=== PATIENT | female | born 1955 | race Caucasian/White ===

== ENCOUNTER 2023-10-13 13:14 | Emergency (ER) | payer MEDICARE, OTHER ==
[~2023-10-13] VITALS: Ht 172.7 cm; Wt 92.4 kg
[~2023-10-13 13:14] MED LIST: CITALOPRAM HBR10 MG; GABAPENTIN300 MG PO; LISINOPRIL10 MG PO; MACROBID 100 M100 MG PO; METOPROLOL SUCC25 MG; TYLENOL EXTRA500 MG PO
--- OUTSIDE RECORDS SUMMARY | 2023-10-13 13:23 | XMS ---
PreManage Notification: CELESTINA HENNING [employer] Events No recent Security Events currently on file CRITERIA MET - [facility] - 2 Visits in 30 Days [facility]: Unknown MERVAT BECKFORD Counselor: Mental Health Current PHONE: [phone] Krystyna has no Care Guidelines for this patient. Rosenda VISIT COUNT (12 MO.) 2 [facility] TOTAL 2 NOTE: Visits indicate total known visits. ED/UCC VISIT TRACKING (12 MO.) 10/13/2023 13:14 [facility] TYPE: Emergency COMPLAINT: - BLOODY URINE 09/22/2023 23:48 [facility] TYPE: Emergency COMPLAINT: - URINE PROBLEM DIAGNOSES: - Essential (primary) hypertension - Hematuria, unspecified - Other chcf (current) drug therapy - Urinary tract infection, site not specified INPATIENT VISIT TRACKING (12 MO.) No inpatient visits to display in this time frame [email or web address]
[2023-10-13 13:37] LABS: BILIRUBIN, URINE NEGATIVE (negative); BLOOD/HGB, URINE LARGE (Negative); KETONE, URINE NEGATIVE (Negative); LEUK ESTERASE, URINE SMALL (negative); NITRITE, URINE NEGATIVE (negative); PH, URINE 5.5 (5-7)
[2023-10-13 13:45] LABS: BACTERIA, URINE 1+ /hpf (negative); CASTS, URINE NONE SEEN \\lpf; COLLECTION TYPE, URINE CLEAN CATCH; CRYSTALS, URINE NONE SEEN (0-1+); EPITHELIAL CELLS, URINE 0 /lpf (0-1+); RED BLOOD CELLS, URINE 41-50 /hpf (0-5); REFLEX CULTURE, URINE Yes (No); WHITE BLOOD CELLS, URINE 21-40 /HPF (0-5)
[2023-10-13] MEDS ORDERED: AMOX TR-K CLV1 EAC1 PO (13:53)
[2023-10-13 14:19] VITALS: BP 132/88
== END 2023-10-13 14:20 | disposition home or self-care (01) ==
LOC: ED 13:14
PROVIDERS: Emergency Medicine
DX: N39.0 Urinary tract infection, site not specified (principal); I10 Essential (primary) hypertension; Z79.899 Other long term (current) drug therapy
CPT/HCPCS: 81001; 87088; 99283

== ENCOUNTER 2024-08-05 12:58 | Emergency (ER) | payer MEDICARE, OTHER ==
[~2024-08-05] VITALS: Ht 172.7 cm; Wt 82.4 kg
[~2024-08-05 12:58] MED LIST changes: +AMOX TR-K CLV1 EAC1 PO
[2024-08-05] MEDS ORDERED: CLONAZEPAM0.25 MG PO (13:42)
[2024-08-05] MEDS ORDERED: SUMATRIPTAN SUC50 MG PO (13:42)
[2024-08-05] MEDS ORDERED: SERTRALINE HCL100 MG PO (13:42)
[2024-08-05] MEDS ORDERED: HYDROXYZINE HCL50 MG PO (13:42)
[2024-08-05] MEDS ORDERED: ondansetron HCL 4 MG/2 ML VIAL IV PRN (13:45)
[2024-08-05] MEDS ORDERED: KETOROLAC TROMETHAMINE 15 MG/ML VIAL IV ONE (13:45)
[2024-08-05 14:00] LABS: BASOPHILS 0.2 % (0-2); EOSINOPHILS 0.7 % (0-6); HEMATOCRIT 42.5 % (35.0-50.0); HEMOGLOBIN 14.4 g/dL (12.0-18.0); MCH 31.2 (27-36); MCHC 33.9 g/dl (30-36); MCV 91.8 fl (81-99); MONOCYTES 7.6 % (0-12); NEUTROPHILS 82.5 % (39-80); PLATELET COUNT 281 K/uL (140-440); RBC 4.62 M/ul (4.3-5.7); RDW 12.9 (10.5-15.0)
[2024-08-05] MEDS ORDERED: SODIUM CHLORIDE 0.9% 1,000 ML IV PRN (14:15)
[2024-08-05 14:19] LABS: ALBUMIN 3.4 g/dL (3.4-5.0); ANION GAP 13.8 (7-21); BILIRUBIN, TOTAL 0.6 ng/dL (0.2-1.0); BUN/CREATININE RATIO 13.07 (6.0-28.6); CALCIUM 10.6 mg/dL (8.5-10.1); CREATININE, SERUM 1.3 mg/dL (0.55-1.02); POTASSIUM 3.8 mmol/L (3.5-5.1); PROTEIN, TOTAL 6.8 g/dL (6.4-8.2)
[2024-08-05 14:22] LABS: BILIRUBIN, URINE POSITIVE (negative); BLOOD/HGB, URINE TRACE-I (Negative); KETONE, URINE SMALL (Negative); LEUK ESTERASE, URINE TRACE (negative); NITRITE, URINE POSITIVE (negative)
[2024-08-05 14:30] LABS: RED BLOOD CELLS, URINE 0-1 /hpf (0-5)
[2024-08-05 14:31] LABS: CRYSTALS, URINE CALCIUM OXALATE 4+ (0-1+)
[2024-08-05 14:34] LABS: COLLECTION TYPE, URINE CLEAN CATCH; REFLEX CULTURE, URINE Yes (No)
[2024-08-05 14:36] LABS: BACTERIA, URINE 1+ /hpf (negative); EPITHELIAL CELLS, URINE SQUAMOUS 1+ /lpf (0-1+)
[2024-08-05] MEDS ORDERED: CEFTRIAXONE/SODIUM CHLORIDE 1 GM/100 ML PIGGYBACK IV ONE (16:00)
[2024-08-05 17:20] LABS: LACTIC ACID, BLOOD 0.8 mmol/L (0.4-2.0)
[2024-08-05] MEDS ORDERED: HYDROmorphone HCL 1 MG/ML SYR IV ONE (19:30)
[2024-08-05] MEDS ORDERED: SODIUM CHLORIDE 0.9% 1,000 ML IV SCH (19:30)
[2024-08-06 01:11] VITALS: BP 145/95
== END 2024-08-06 01:24 | disposition short-term general hospital (02) ==
LOC: ED 12:58
PROVIDERS: Emergency Medicine
DX: N13.6 Pyonephrosis (principal); R94.4 Abnormal results of kidney function studies; G43.909 Migraine, unspecified, not intractable, without status migrainosus; I10 Essential (primary) hypertension; Z87.442 Personal history of urinary calculi; Z88.8 Allergy status to other drugs, medicaments and biological substances; Z79.899 Other long term (current) drug therapy
CPT/HCPCS: 36415; 74176; 80053; 81001; 83605; 85025; 87077; 87088; 87186; 96361; 96365; 96375; 99285-25; J0696; J1171; J1885; J2405; J7030

== ENCOUNTER 2024-09-09 12:40 | Emergency (ER) | payer MEDICARE, OTHER ==
[~2024-09-09] VITALS: Ht 172.7 cm; Wt 81.4 kg
[~2024-09-09 12:40] MED LIST changes: +CLONAZEPAM0.25 MG PO; +HYDROXYZINE HCL50 MG PO; -METOPROLOL SUCC25 MG; +METOPROLOL SUCC25 MG PO; +SERTRALINE HCL100 MG PO; +SUMATRIPTAN SUC50 MG PO
[2024-09-09] MEDS ORDERED: ondansetron HCL 4 MG/2 ML VIAL IV ONE (13:00)
[2024-09-09 13:01] LABS: HEMATOCRIT 42.2 % (35.0-50.0); HEMOGLOBIN 14.2 g/dL (12.0-18.0); MCH 30.4 (27-36); MCHC 33.6 g/dl (30-36); MCV 90.3 fl (81-99); PLATELET COUNT 291 K/uL (140-440); RBC 4.67 M/ul (4.3-5.7); RDW 13.1 (10.5-15.0)
[2024-09-09 13:16] LABS: ALBUMIN 3.5 g/dL (3.4-5.0); ALBUMIN/GLOBULIN RATIO 0.8 (1.1-2.4); ANION GAP 15.4 (7-21); BUN/CREATININE RATIO 9.7 (6.0-28.6); CALCIUM 10.7 mg/dL (8.5-10.1); CREATININE, SERUM 1.34 mg/dL (0.55-1.02); MAGNESIUM 1.4 mg/dL (1.8-2.4); POTASSIUM 3.4 mmol/L (3.5-5.1); PROTEIN, TOTAL 7.9 g/dL (6.4-8.2)
[2024-09-09 13:17] LABS: BANDS, MANUAL DIFF 9; BASOPHILS, MANUAL DIFF 0; EOSINOPHILS, MANUAL DIFF 0; LYMPHOCYTES, MANUAL DIFF 6; MONOCYTES, MANUAL DIFF 12; NEUTROPHILS, MANUAL DIFF 73
[2024-09-09 13:59] LABS: BILIRUBIN, URINE NEGATIVE (negative); BLOOD/HGB, URINE LARGE (Negative); KETONE, URINE TRACE (Negative); LEUK ESTERASE, URINE MODERATE (negative); NITRITE, URINE POSITIVE (negative); PH, URINE 5.5 (5-7)
[2024-09-09 14:01] LABS: RED BLOOD CELLS, URINE 0-1 /hpf (0-5); WHITE BLOOD CELLS, URINE >50 /HPF (0-5)
[2024-09-09 14:02] LABS: BACTERIA, URINE 2+ /hpf (negative); CASTS, URINE NONE SEEN \\lpf; COLLECTION TYPE, URINE CLEAN CATCH; CRYSTALS, URINE NONE SEEN (0-1+); EPITHELIAL CELLS, URINE 0 /lpf (0-1+)
[2024-09-09 14:03] LABS: REFLEX CULTURE, URINE Yes (No)
[2024-09-09] MEDS ORDERED: CEFTRIAXONE/SODIUM CHLORIDE 1 GM/100 ML PIGGYBACK IV ONE (14:45)
[2024-09-09] MEDS ORDERED: ACETAMINOPHEN 500 MG TAB PO ONE (15:45)
[2024-09-09 16:35] VITALS: BP 176/96
[2024-09-13] MEDS ORDERED: BACTRIM DS TAB1 EACH PO (12:37)
== END 2024-09-09 16:35 | disposition home or self-care (01) ==
LOC: ED 12:40
PROVIDERS: Emergency Medicine
DX: N39.0 Urinary tract infection, site not specified (principal); I10 Essential (primary) hypertension; G43.909 Migraine, unspecified, not intractable, without status migrainosus; Z96.0 Presence of urogenital implants; Z88.8 Allergy status to other drugs, medicaments and biological substances; Z79.899 Other long term (current) drug therapy
CPT/HCPCS: 36415; 80053; 81001; 83735; 85025; 87088; 96374; 99284-25; A9270; J0696

== ENCOUNTER 2024-11-25 10:30 | Emergency (ER) | payer MEDICARE, OTHER ==
[~2024-11-25] VITALS: Ht 172.7 cm; Wt 84.4 kg
[~2024-11-25 10:30] MED LIST changes: +BACTRIM DS TAB1 EACH PO
[2024-11-25] MEDS ORDERED: diphenhydrAMINE HCL 50 MG/ML VIAL IV ONE (11:30)
[2024-11-25] MEDS ORDERED: METOCLOPRAMIDE HCL 10 MG/2 ML SDV IV ONE (11:30)
[2024-11-25] MEDS ORDERED: DEXAMETHASONE SOD PHOS 10 MG/ML VIAL IV ONE (11:30)
[2024-11-25] MEDS ORDERED: KETOROLAC TROMETHAMINE 15 MG/ML VIAL IV ONE (11:30)
[2024-11-25] MEDS ORDERED: SODIUM CHLORIDE 0.9% 1,000 ML IV ONE (11:30)
[2024-11-25] MEDS ORDERED: REGLAN10 MG PO (12:49)
[2024-11-25 13:03] VITALS: BP 188/84
== END 2024-11-25 13:07 | disposition home or self-care (01) ==
LOC: ED 10:30
DX: G43.909 Migraine, unspecified, not intractable, without status migrainosus (principal); I10 Essential (primary) hypertension; Z88.8 Allergy status to other drugs, medicaments and biological substances; Z79.899 Other long term (current) drug therapy
CPT/HCPCS: 96374; 96375; 99283-25; J1100; J1200; J1885; J2765; J7030

== ENCOUNTER 2025-02-28 18:57 | Emergency (ER) | payer MEDICARE, OTHER ==
[~2025-02-28] VITALS: Ht 172.7 cm; Wt 86.1 kg
[~2025-02-28 18:57] MED LIST changes: +REGLAN10 MG PO
[2025-02-28] MEDS ORDERED: METOPROLOL SUCC50 MG PO (20:35)
[2025-02-28] MEDS ORDERED: METOPROLOL SUCCINATE 50 MG TABCR PO ONE (20:45)
[2025-02-28 20:47] VITALS: BP 158/117
[2025-02-28] MEDS ORDERED: LISINOPRIL40 MG PO (21:02)
== END 2025-02-28 20:47 | disposition home or self-care (01) ==
LOC: ED 18:57
DX: Z76.0 Encounter for issue of repeat prescription (principal); G43.909 Migraine, unspecified, not intractable, without status migrainosus; I10 Essential (primary) hypertension; Z79.899 Other long term (current) drug therapy; Z88.8 Allergy status to other drugs, medicaments and biological substances
CPT/HCPCS: 99281

== ENCOUNTER 2025-05-09 16:42 | Emergency (ER) | payer MEDICARE, OTHER ==
[~2025-05-09] VITALS: Ht 172.7 cm; Wt 88.7 kg
[~2025-05-09 16:42] MED LIST changes: +LISINOPRIL40 MG PO; +METOPROLOL SUCC50 MG PO
[2025-05-09] MEDS ORDERED: SODIUM CHLORIDE 0.9% 1,000 ML IV ONE (17:30)
[2025-05-09 17:39] LABS: BASOPHILS 0.3 % (0.1-1.2); EOSINOPHILS 0.9 % (0.7-5.8); LYMPHOCYTES 24.1 % (19.3-51.7); MCH 30.5 PG (25.6-32.2); MCHC 33.7 g/dL (32.2-35.5); MCV 90.5 fL (79.4-94.8); MONOCYTES 8.1 % (4.7-12.5); NEUTROPHILS 66.4 % (34.0-71.1); RBC 4.40 M/uL (3.93-5.22)
[2025-05-09 17:54] LABS: ALT (SGPT) 24.0 U/L (14-59); AST (SGOT) 15.0 U/L (15-37); GLOMERULAR FILTRATION RATE,EST 67.0 mL/min (>60); PROTEIN, TOTAL 6.9 g/dL (6.4-8.2); UREA NITROGEN 14.0 mg/dL (7-18)
[2025-05-09 18:27] LABS: BLOOD/HGB, URINE SMALL (Negative); KETONE, URINE NEGATIVE (Negative); LEUK ESTERASE, URINE NEGATIVE (negative); NITRITE, URINE NEGATIVE (negative)
[2025-05-09] MEDS ORDERED: TAMSULOSIN HCL 0.4 MG CAP PO ONE (18:30)
[2025-05-09] MEDS ORDERED: HYDROCODONE BIT/ACETAMINOPHEN 5/325 MG 1 TAB HOME.PACK PO ONE (18:30)
[2025-05-09] MEDS ORDERED: ONDANSETRON ODT8 MG PO (18:31)
[2025-05-09] MEDS ORDERED: FLOMAX0.4 MG PO (18:31)
[2025-05-09] MEDS ORDERED: HYDROCODON-ACE1 EA10 PO (18:31)
[2025-05-09 18:33] LABS: BACTERIA, URINE NONE SEEN /hpf (negative); CASTS, URINE NONE SEEN \\lpf; CRYSTALS, URINE NONE SEEN (0-1+); EPITHELIAL CELLS, URINE SQUAMOUS 1+ /lpf (0-1+); REFLEX CULTURE, URINE No (No)
[2025-05-09 18:46] VITALS: BP 169/79
== END 2025-05-09 18:42 | disposition home or self-care (01) ==
LOC: ED 16:42
PROVIDERS: Emergency Medicine
DX: N13.2 Hydronephrosis with renal and ureteral calculous obstruction (principal); I10 Essential (primary) hypertension; Z87.442 Personal history of urinary calculi; Z88.8 Allergy status to other drugs, medicaments and biological substances; Z79.899 Other long term (current) drug therapy
CPT/HCPCS: 36415; 74176; 80053; 81001; 83690; 85025; 99284-25; A9270; J7030

== ENCOUNTER 2025-06-23 16:46 | Emergency (ER) | payer MEDICARE, OTHER ==
[~2025-06-23] VITALS: Ht 172.7 cm; Wt 87.0 kg
[~2025-06-23 16:46] MED LIST changes: +FLOMAX0.4 MG PO; +HYDROCODON-ACE1 EA10 PO; +ONDANSETRON ODT8 MG PO
[2025-06-23] MEDS ORDERED: KETOROLAC TROMETHAMINE 15 MG/ML VIAL IV ONE (17:15)
[2025-06-23] MEDS ORDERED: VALSARTAN160 MG PO (17:18)
[2025-06-23] MEDS ORDERED: FAMOTIDINE20 MG PO (17:18)
[2025-06-23] MEDS ORDERED: HYDROmorphone HCL 1 MG/ML SYR IV ONE ×2 (17:30→18:30)
[2025-06-23 17:34] LABS: BASOPHILS 0.3 % (0.1-1.2); EOSINOPHILS 1.0 % (0.7-5.8); LYMPHOCYTES 26.0 % (19.3-51.7); MCH 30.1 PG (25.6-32.2); MCHC 33.6 g/dL (32.2-35.5); MCV 89.8 fL (79.4-94.8); MONOCYTES 7.8 % (4.7-12.5); NEUTROPHILS 64.8 % (34.0-71.1); RBC 4.88 M/uL (3.93-5.22)
[2025-06-23 17:50] LABS: ALT (SGPT) 21.0 U/L (14-59); AST (SGOT) 17.0 U/L (15-37); GLOMERULAR FILTRATION RATE,EST 52.0 mL/min (>60); PROTEIN, TOTAL 7.0 g/dL (6.4-8.2); UREA NITROGEN 16.0 mg/dL (7-18)
[2025-06-23] MEDS ORDERED: FLOMAX0.4 MG PO (20:15)
[2025-06-23] MEDS ORDERED: HYDROCODON-ACE1 EA10 PO (20:15)
[2025-06-23] MEDS ORDERED: MACROBID 100 M100 MG PO (20:15)
[2025-06-23] MEDS ORDERED: ONDANSETRON ODT8 MG PO (20:15)
[2025-06-23] MEDS ORDERED: HYDROCODONE BIT/ACETAMINOPHEN 5/325 MG 1 TAB HOME.PACK PO ONE (20:30)
[2025-06-23] MEDS ORDERED: ONDANSETRON 4 MG HOME.PACK SL ONE (20:30)
[2025-06-23] MEDS ORDERED: NITROFURANTOIN MONOHYD MACROCR 100 MG HOME.PACK PO ONE (20:30)
[2025-06-23 20:54] VITALS: BP 165/75
--- NOTE | 2025-06-24 07:29 | EKG ---
[facility] [address] [place], [place] [address] Signed Sinus bradycardia Otherwise normal ECG No previous ECGs available Confirmed by TALIA BOWER MD ([id number] on 06/24/2025 7:28:59 AM Electronically Signed By: TALIA BOWER 06/24/25 0729 PATIENT NAME: CELESTINA HENNING Electrocardiogram DATE OF : 59 PHYSICIAN: TALIA BOWER REPORT #: [id number] REPORT IS CONFIDENTIAL AND NOT TO BE RELEASED WITHOUT AUTHORIZATION
== END 2025-06-23 20:40 | disposition home or self-care (01) ==
LOC: ED 16:46
PROVIDERS: Emergency Medicine
DX: N13.2 Hydronephrosis with renal and ureteral calculous obstruction (principal); I10 Essential (primary) hypertension; Z88.8 Allergy status to other drugs, medicaments and biological substances; Z79.899 Other long term (current) drug therapy
CPT/HCPCS: 74176; 80053; 85025; 93005; 93010; 96374; 96375; 96376; 99284-25; A9270; J1171; J2405